=== PATIENT | female | born 1985 ===

== ENCOUNTER → 2016-05-11 | Outpatient (REF) | payer SELFPAY ==
[2016-05-11 17:38] LABS: BILIRUBIN,URINE Negative (Negative); CLARITY,URINE Clear; GLUCOSE, URINE (UA) Negative (Negative); LEUKOCYTE ESTERASE ,URINE Negative (Negative); UROBILINOGEN,URINE 0.2 mg/dL (0.2-1.0)
[2016-05-11 17:39] LABS: COLOR,URINE Dark Yellow
== END ==
LOC: LAB 17:27
PROVIDERS: ATTEND Obstetrics & Gynecology
DX: Z01.419 Encounter for gynecological examination (general) (routine) without abnormal findings (principal)
CPT/HCPCS: 81003